=== PATIENT | male | born 1990 ===

== ENCOUNTER 2017-04-01 08:38 | Day surgery (SDC) | payer OTHER ==
[2017-04-01] MEDS ORDERED: Lactated Ringer's 500 ML IV ONE (09:05)
[2017-04-01] MEDS ORDERED: Midazolam 2 MG/2 ML VIAL ONE (10:19)
[2017-04-01] MEDS ORDERED: Propofol 10 mg/ml Inj (20 ML) ONE ×2 (10:20→10:36)
[2017-04-01 11:01] VITALS: TEMP 96.8
[2017-04-01 11:45] VITALS: BP 115/76; PULSE 51; RESP 18; O2SAT 100
== END 2017-04-01 11:45 | disposition home or self-care (01) ==
LOC: H.ENDO 08:38
PROVIDERS: ATTEND Internal Medicine Gastroenterology
DX: R19.7 Diarrhea, unspecified (principal); K62.89 Other specified diseases of anus and rectum; K92.2 Gastrointestinal hemorrhage, unspecified; K52.9 Noninfective gastroenteritis and colitis, unspecified; K63.89 Other specified diseases of intestine
CPT/HCPCS: 45380; 87015; 87045; 87116; 87177; 87206; 87209; 87230; 88305; 89055; J2001; J2250; J2704; J7120